=== PATIENT | male | born 1965 | race Caucasian/White ===

== ENCOUNTER → 2025-05-26 | Outpatient (CLI) | payer MEDICAID ==
--- NOTE | 2025-05-26 19:35 | RADIOLOGY REPORT ---
EXAM: CT CT LUMBAR SPINE INDICATION: RADICULOPATHY, LUMBAR REGION,SPONDYLOLISTHESIS, LUMBAR REGION TECHNIQUE: Axial images of the lumbar spine have been obtained along with coronal and sagittal reformatted images. CT scans at this facility use dose modulation, iterative reconstruction, and/or weight based dosing when appropriate to reduce radiation dose to as low as reasonably achievable. COMPARISON: None FINDINGS: ANATOMY: Five lumbar-type vertebral bodies are present. The most inferior well- formed disc space will be referred to as L5-S1 for purposes of numbering in this report. VERTEBRAL BODIES: The vertebral bodies are normal in height and alignment. Grade 1 anterolisthesis L4 over L5. Surgical retrolisthesis L5 over S1. SPINAL CANAL: Spinal canal narrowing at L4-5, which appears to be severe measuring down to 4-5 mm. INTERVERTEBRAL DISCS: No significant posterior osteophyte complex FACETS: Multilevel moderate to severe facet arthropathy. OTHER: Right 2-3 mm right renal caliceal stone. IMPRESSION: 1. Severe spinal canal narrowing at L4- 2. Multilevel moderate to severe facet arthropathy.
== END | disposition home or self-care (01) ==
LOC: RAD 15:34
PROVIDERS: ATTEND Physical Medicine & Rehabilitation
DX: M51.16 Intervertebral disc disorders with radiculopathy, lumbar region (principal); M43.17 Spondylolisthesis, lumbosacral region; M51.369 Other intervertebral disc degeneration, lumbar region without mention of lumbar back pain or lower extremity pain; M48.061 Spinal stenosis, lumbar region without neurogenic claudication
CPT/HCPCS: 72131